=== PATIENT | female | born 1975 | race African-American/Black ===

== ENCOUNTER 2017-04-10 17:18 | Inpatient (IN) ==
[2017-04-10] MEDS ORDERED: METOPROLOL TARTRATE 25 MG TABLET PO STA (19:24)
[2017-04-10] MEDS ORDERED: ASPIRIN 325 MG TABLET PO STA (19:24)
[2017-04-10] MEDS ORDERED: NITROGLYCERIN 2% OINT 1 INCH/GM PACK TOP STA (19:24)
[2017-04-10] MEDS ORDERED: ALUM/MAG/SIMETH/LIDO VISC 1:1 30 ML BOTTLE PO STA (19:24)
[2017-04-10] MEDS ORDERED: MORPHINE 2 MG/1 ML SYRINGE IV STA ×2 (19:24→22:33)
[2017-04-10] MEDS ORDERED: ONDANSETRON 4 MG/2 ML VIAL IV STA (19:24)
[2017-04-10] MEDS ORDERED: METOPROLOL TARTRATE 25 MG TABLET ONE (19:36)
[2017-04-10] MEDS ORDERED: MORPHINE 2 MG/1 ML SYRINGE ONE ×2 (19:36→22:21)
[2017-04-10] MEDS ORDERED: NITROGLYCERIN 2% OINT 1 INCH/GM PACK TOP ONE (19:36)
[2017-04-10] MEDS ORDERED: ALUM/MAG/SIMETH/LIDO VISC 1:1 30 ML BOTTLE PO ONE (19:36)
[2017-04-10] MEDS ORDERED: ONDANSETRON 4 MG/2 ML VIAL ONE (19:36)
[2017-04-10 20:02] LABS: Basophils % 0.5 % (0.0-0.8); Eosinophils # 0.3 10*3/uL (0.0-0.87); Hematocrit 30.8 VOL% (35.7-47.0); Hemoglobin 9.7 GM/DL (12.0-16.0); Immature Granulocytes % 0.3 %; Immature Granulocytes Absolute 0.02 #; Lymphocytes # 2.8 10*3/uL (1.4-4.0); Lymphocytes % 37.6 % (21.3-54.2); Mean Corpuscular HGB Conc 31.5 GM/DL (32-36); Mean Corpuscular Hemoglobin 23 PG (27-34); Mean Corpuscular Volume 74.2 FL (87-102); Mean Platelet Volume 9.7 FL (9.6-12.0); Monocytes # 0.8 10*3/uL (0.11-0.8); Monocytes % 10.2 % (1.7-12.7); Neutrophils # 3.6 10*3/uL (1.4-7.4); Neutrophils % 47.4 % (38.7-73.9); Platelet Count 407 T/CUMM (130-400); Red Blood Count 4.15 MC/CUMM (3.8-5.5); Red Cell Distribution Width 17.6 % (9.3-17.3); White Blood Count 7.6 T/CUMM (4-12)
[2017-04-10 20:10] LABS: Apearance,Urine Slightly Hazy (Clear); Bacteria,Urine Occasional /HPF (Few); Bilirubin,Urine Negative (Negative); Blood, Urine Large mg/dL (Negative); Glucose,Urine (UA) Negative (Negative); Ketones,Urine Negative (Negative); Mucus,Urine Occasional /LPF (Occasional); Nitrite,Urine Negative (Negative); Protein,Urine Negative; RBC,Urine 1 /HPF (0-4); Squamous Epithelial Cell,Urine Occasional /HPF (0-10); Urine Color Yellow (Yellow); Urine Specific Gravity 1.013 (1.001-1.035); Urine Urobilinogen < 2.0 EU/DL (0.2-1.0); WBC,Urine 3 /HPF (0-6)
[2017-04-10 20:44] LABS: Alanine Aminotransferase 29 U/L (13-56); Alkaline Phosphatase 82 U/L (45-117); Aspartate Amino Transferase 31 U/L (0-37); Bilirubin,Total < 0.39 MG/DL (0.2-1.0); Calcium 8.7 MG/DL (8.5-10.1); Total Protein 7.9 G/DL (6.4-8.3)
[2017-04-10 20:45] LABS: Blood Urea Nitrogen 8 MG/DL (7-18); Glucose 74 MG/DL (74-106); Osmolality,Calculated 271.7 MOS/KG (273-304); Potassium 3.5 MMOL/L (3.5-5.1); Sodium 138 MMOL/L (136-145)
[2017-04-10 21:21] LABS: Barbiturates Screen,Urine Negative (Negative); Benzodiazepines Screen,Urine Negative (Negative); Cannabinoid Screen,Urine Negative (Negative); Opiate Screen,Urine Negative (Negative); Phencyclidine Screen,Urine Negative (Negative)
[2017-04-10] MEDS ORDERED: ASPIRIN 325 MG TABLET ONE (22:21)
[2017-04-10] MEDS ORDERED: ENOXAPARIN 100 MG/ML SYRINGE SUBCUT STA (22:24)
[2017-04-10] MEDS ORDERED: ENOXAPARIN 60 MG/0.6 ML SYRINGE ONE (22:35)
[2017-04-11] MEDS ORDERED: ONDANSETRON 4 MG/2 ML VIAL IV PRN (00:26)
[2017-04-11 01:04] LABS: Basophils % 0.6 % (0.0-0.8); Eosinophils # 0.3 10*3/uL (0.0-0.87); Eosinophils % 4.8 % (0.00-10.9); Hemoglobin 9.1 GM/DL (12.0-16.0); Immature Granulocytes % 0.2 %; Immature Granulocytes Absolute 0.01 #; Lymphocytes # 2.9 10*3/uL (1.4-4.0); Lymphocytes % 44.9 % (21.3-54.2); Mean Corpuscular HGB Conc 31.4 GM/DL (32-36); Mean Corpuscular Hemoglobin 23 PG (27-34); Mean Corpuscular Volume 73.6 FL (87-102); Mean Platelet Volume 10.3 FL (9.6-12.0); Monocytes # 0.5 10*3/uL (0.11-0.8); Neutrophils # 2.7 10*3/uL (1.4-7.4); Neutrophils % 41.5 % (38.7-73.9); Platelet Count 357 T/CUMM (130-400); Red Blood Count 3.94 MC/CUMM (3.8-5.5); Red Cell Distribution Width 17.3 % (9.3-17.3); White Blood Count 6.5 T/CUMM (4-12)
[2017-04-11 01:38] LABS: Alanine Aminotransferase 26 U/L (13-56); Alkaline Phosphatase 78 U/L (45-117); Aspartate Amino Transferase 30 U/L (0-37); Bilirubin,Total < 0.39 MG/DL (0.2-1.0); Blood Urea Nitrogen 8 MG/DL (7-18); Calcium 8.5 MG/DL (8.5-10.1); Cholesterol 144 MG/DL (50-200); Glucose 86 MG/DL (74-106); HDL Cholesterol 55 MG/DL (40-60); Magnesium 2.2 MG/DL (1.8-2.4); Osmolality,Calculated 273.5 MOS/KG (273-304); Potassium 3.9 MMOL/L (3.5-5.1); Risk Ratio 2.62; Sodium 139 MMOL/L (136-145); Total Protein 7.7 G/DL (6.4-8.3); Triglycerides 38 MG/DL (2-150); VLDL CHOLESTEROL 7.6 MG/DL
[2017-04-11 08:20] LABS: Apearance,Urine Slightly Hazy (Clear); Bacteria,Urine Occasional /HPF (Few); Bilirubin,Urine Negative (Negative); Blood, Urine Large mg/dL (Negative); Glucose,Urine (UA) Negative (Negative); Ketones,Urine Negative (Negative); Mucus,Urine Occasional /LPF (Occasional); Nitrite,Urine Negative (Negative); Protein,Urine Negative; RBC,Urine 1 /HPF (0-4); Squamous Epithelial Cell,Urine Occasional /HPF (0-10); Urine Color Yellow (Yellow); Urine Urobilinogen < 2.0 EU/DL (0.2-1.0); WBC,Urine 1 /HPF (0-6)
[2017-04-11] MEDS: PANTOPRAZOLE 40 MG TABLET PO SCH (08:28)
[2017-04-11] MEDS: HYDROXYCHLOROQUINE 200 MG TABLET PO SCH (08:28)
[2017-04-11] MEDS: FERROUS SULFATE 325 MG TABLET PO SCH ×2 (08:28→20:36)
[2017-04-11] MEDS: THEOPHYLLINE ER (24 HR) 200 MG CAPSULE PO SCH (08:29)
[2017-04-11] MEDS: ENOXAPARIN 40 MG/0.4 ML SYRINGE SUBCUT SCH (08:31)
[2017-04-11] MEDS: BUDESONIDE/FORMOTEROL 160-4.5 INHALER 6 GM INH SCH ×2 (08:32→20:38)
[2017-04-11] MEDS: ALBUTEROL 2.5 MG/3 ML NEB RESP TX PRN (10:35)
[2017-04-11] MEDS: predniSONE 20 MG TABLET PO SCH (16:52)
[2017-04-12 05:34] LABS: Basophils % 0.2 % (0.0-0.8); Hematocrit 30.9 VOL% (35.7-47.0); Immature Granulocytes % 0.4 %; Immature Granulocytes Absolute 0.02 #; Lymphocytes # 1.1 10*3/uL (1.4-4.0); Lymphocytes % 20.8 % (21.3-54.2); Mean Corpuscular HGB Conc 32.4 GM/DL (32-36); Mean Corpuscular Hemoglobin 24 PG (27-34); Mean Corpuscular Volume 73.4 FL (87-102); Mean Platelet Volume 10.7 FL (9.6-12.0); Monocytes # 0.2 10*3/uL (0.11-0.8); Monocytes % 3.3 % (1.7-12.7); Neutrophils # 3.8 10*3/uL (1.4-7.4); Neutrophils % 75.3 % (38.7-73.9); Platelet Count 389 T/CUMM (130-400); Red Blood Count 4.21 MC/CUMM (3.8-5.5); Red Cell Distribution Width 17.9 % (9.3-17.3); White Blood Count 5.1 T/CUMM (4-12)
[2017-04-12 06:25] LABS: Albumin 2.9 G/DL (3.4-5.0); Bilirubin,Total 0.5 MG/DL (0.2-1.0); Calcium 8.4 MG/DL (8.5-10.1); Potassium 4.3 MMOL/L (3.5-5.1); Total Protein 7.9 G/DL (6.4-8.3)
[2017-04-12] MEDS: THEOPHYLLINE ER (24 HR) 200 MG CAPSULE PO SCH (08:42)
[2017-04-12] MEDS: HYDROXYCHLOROQUINE 200 MG TABLET PO SCH (08:42)
[2017-04-12] MEDS: PANTOPRAZOLE 40 MG TABLET PO SCH (08:42)
[2017-04-12] MEDS: predniSONE 20 MG TABLET PO SCH (08:42)
[2017-04-12] MEDS: FERROUS SULFATE 325 MG TABLET PO SCH ×2 (08:42→21:53)
[2017-04-12] MEDS: BUDESONIDE/FORMOTEROL 160-4.5 INHALER 6 GM INH SCH ×2 (08:43→23:40)
[2017-04-12] MEDS: ENOXAPARIN 40 MG/0.4 ML SYRINGE SUBCUT SCH (08:44)
[2017-04-12] MEDS: ALBUTEROL 2.5 MG/3 ML NEB RESP TX PRN (10:05)
[2017-04-12] MEDS: DICLOFENAC 1.3% PATCH 5/PACK TRANSDERM SCH ×2 (15:07→21:53)
[2017-04-13] MEDS: FERROUS SULFATE 325 MG TABLET PO SCH ×2 (08:37→21:25)
[2017-04-13] MEDS: THEOPHYLLINE ER (24 HR) 200 MG CAPSULE PO SCH (08:37)
[2017-04-13] MEDS: DICLOFENAC 1.3% PATCH 5/PACK TRANSDERM SCH ×2 (08:38→21:26)
[2017-04-13] MEDS: PANTOPRAZOLE 40 MG TABLET PO SCH (08:38)
[2017-04-13] MEDS: predniSONE 20 MG TABLET PO SCH (08:38)
[2017-04-13] MEDS: HYDROXYCHLOROQUINE 200 MG TABLET PO SCH (08:38)
[2017-04-13] MEDS: BUDESONIDE/FORMOTEROL 160-4.5 INHALER 6 GM INH SCH ×2 (08:39→21:25)
[2017-04-13] MEDS: ENOXAPARIN 40 MG/0.4 ML SYRINGE SUBCUT SCH (08:39)
[2017-04-13] MEDS: ALBUTEROL 2.5 MG/3 ML NEB RESP TX PRN (14:30)
[2017-04-13] MEDS: ZALEPLON 5 MG CAPSULE PO PRN (21:25)
[2017-04-14] MEDS ORDERED: LIDOCAINE 2% 5 ML VIAL ONE (09:00)
[2017-04-14] MEDS ORDERED: PROPOFOL 200 MG/20 ML VIAL IV ONE (09:00)
[2017-04-14] MEDS: FERROUS SULFATE 325 MG TABLET PO SCH ×2 (13:58→21:57)
[2017-04-14] MEDS: predniSONE 20 MG TABLET PO SCH (13:58)
[2017-04-14] MEDS: DICLOFENAC 1.3% PATCH 5/PACK TRANSDERM SCH ×2 (13:59→21:53)
[2017-04-14] MEDS: HYDROXYCHLOROQUINE 200 MG TABLET PO SCH (13:59)
[2017-04-14] MEDS: PANTOPRAZOLE 40 MG TABLET PO SCH (13:59)
[2017-04-14] MEDS: THEOPHYLLINE ER (24 HR) 200 MG CAPSULE PO SCH (13:59)
[2017-04-14] MEDS: BUDESONIDE/FORMOTEROL 160-4.5 INHALER 6 GM INH SCH ×2 (14:02→21:57)
[2017-04-14] MEDS: ZALEPLON 5 MG CAPSULE PO PRN (21:57)
[2017-04-15] MEDS: DICLOFENAC 1.3% PATCH 5/PACK TRANSDERM SCH (09:27)
[2017-04-15] MEDS: PANTOPRAZOLE 40 MG TABLET PO SCH (09:27)
[2017-04-15] MEDS: FERROUS SULFATE 325 MG TABLET PO SCH (09:27)
[2017-04-15] MEDS: HYDROXYCHLOROQUINE 200 MG TABLET PO SCH (09:27)
[2017-04-15] MEDS: predniSONE 20 MG TABLET PO SCH (09:27)
[2017-04-15] MEDS: BUDESONIDE/FORMOTEROL 160-4.5 INHALER 6 GM INH SCH (09:28)
[2017-04-15] MEDS: THEOPHYLLINE ER (24 HR) 200 MG CAPSULE PO SCH (09:28)
[2017-04-15 12:39] VITALS: BP 102/58
== END 2017-04-15 16:29 | disposition home health service (06) | DRG 243 ==
LOC: N.ED 17:18 → N.EDINP 23:38 → SUATTDRO 23:38 → N.TELES 04-11 00:10
PROVIDERS: ADMIT Internal Medicine; ATTEND Hospitalist

== ENCOUNTER 2017-04-20 10:58 | Inpatient (IN) ==
[2017-04-20 12:21] LABS: CKMB % 3.1 %; Troponin I Only 0.02 NG/ML (0.00-0.045)
[2017-04-20] MEDS ORDERED: ENOXAPARIN 100 MG/ML SYRINGE SUBCUT STA (12:54)
[2017-04-20] MEDS ORDERED: ASPIRIN 325 MG TABLET PO STA (12:54)
[2017-04-20] MEDS ORDERED: NITROGLYCERIN SL 0.4 MG TABLET SL PRN (12:54)
[2017-04-20] MEDS ORDERED: methylPREDNISolone SOD SUC 125 MG/2 ML VIAL IV STA (12:54)
[2017-04-20 13:03] LABS: Basophils # 0.1 10*3/uL (0.0-0.2); Basophils % 0.6 % (0.0-0.8); Eosinophils # 0.1 10*3/uL (0.0-0.87); Eosinophils % 0.9 % (0.00-10.9); Hematocrit 33.7 VOL% (35.7-47.0); Hemoglobin 10.8 GM/DL (12.0-16.0); Immature Granulocytes % 0.6 %; Immature Granulocytes Absolute 0.07 #; Lymphocytes # 1.9 10*3/uL (1.4-4.0); Lymphocytes % 17.3 % (21.3-54.2); Mean Corpuscular Hemoglobin 24 PG (27-34); Mean Corpuscular Volume 76.2 FL (87-102); Mean Platelet Volume 10.6 FL (9.6-12.0); Monocytes # 0.5 10*3/uL (0.11-0.8); Monocytes % 4.1 % (1.7-12.7); Neutrophils # 8.5 10*3/uL (1.4-7.4); Neutrophils % 76.5 % (38.7-73.9); Platelet Count 422 T/CUMM (130-400); Red Blood Count 4.42 MC/CUMM (3.8-5.5); Red Cell Distribution Width 21.2 % (9.3-17.3); White Blood Count 11.1 T/CUMM (4-12)
[2017-04-20 13:16] LABS: Albumin 3.2 G/DL (3.4-5.0); Bilirubin,Total 0.4 MG/DL (0.2-1.0); Calcium 9.1 MG/DL (8.5-10.1); Osmolality,Calculated 270.8 MOS/KG (273-304); Potassium 3.4 MMOL/L (3.5-5.1); Total Protein 7.7 G/DL (6.4-8.3)
[2017-04-20] MEDS ORDERED: methylPREDNISolone SOD SUC 125 MG/2 ML VIAL ONE ×2 (13:35→13:50)
[2017-04-20] MEDS ORDERED: NITROGLYCERIN SL 0.4 MG TABLET SL ONE (13:35)
[2017-04-20] MEDS ORDERED: ASPIRIN 325 MG TABLET ONE (13:35)
[2017-04-20] MEDS ORDERED: ENOXAPARIN 60 MG/0.6 ML SYRINGE ONE (13:35)
[2017-04-20] MEDS ORDERED: ALBUTEROL 2.5 MG/3 ML NEB RESP TX PRN (14:43)
[2017-04-20] MEDS ORDERED: ACETAMINOPHEN 325 MG TABLET PO PRN (14:43)
[2017-04-20] MEDS ORDERED: ZALEPLON 5 MG CAPSULE PO PRN (14:43)
[2017-04-20] MEDS ORDERED: ONDANSETRON 8 MG PO PRN (14:43)
[2017-04-20] MEDS ORDERED: ONDANSETRON 4 MG/2 ML VIAL IV PRN (14:43)
[2017-04-20] MEDS: SODIUM CHLORIDE 0.9% 1,000 ML IV SCH (15:18)
[2017-04-20] MEDS: IBUPROFEN 200 MG TABLET PO SCH ×3 (16:11→23:51)
[2017-04-20] MEDS ORDERED: KETOROLAC 30 MG/1 ML VIAL IV ONE (16:20)
[2017-04-20] MEDS ORDERED: POTASSIUM CHLORIDE 20 MEQ TABLET PO ONE (16:39)
[2017-04-20] MEDS: traMADol 50 MG TABLET PO SCH ×2 (16:48→22:01)
[2017-04-20] MEDS: ACETAMINOPHEN 325 MG TABLET PO SCH ×2 (16:49→22:01)
[2017-04-20] MEDS: GABAPENTIN 100 MG CAPSULE PO SCH ×2 (16:50→20:30)
[2017-04-20] MEDS: FERROUS SULFATE 325 MG TABLET PO SCH (20:30)
[2017-04-20] MEDS: BUDESONIDE/FORMOTEROL 160-4.5 INHALER 6 GM INH SCH (23:21)
[2017-04-21 04:35] LABS: Basophils % 0.1 % (0.0-0.8); Hematocrit 33.2 VOL% (35.7-47.0); Hemoglobin 10.6 GM/DL (12.0-16.0); Immature Granulocytes % 0.4 %; Immature Granulocytes Absolute 0.05 #; Lymphocytes # 1.5 10*3/uL (1.4-4.0); Lymphocytes % 11.9 % (21.3-54.2); Mean Corpuscular HGB Conc 31.9 GM/DL (32-36); Mean Corpuscular Hemoglobin 24 PG (27-34); Mean Corpuscular Volume 74.9 FL (87-102); Mean Platelet Volume 10.4 FL (9.6-12.0); Monocytes # 0.6 10*3/uL (0.11-0.8); Monocytes % 4.9 % (1.7-12.7); Neutrophils # 10.4 10*3/uL (1.4-7.4); Neutrophils % 82.7 % (38.7-73.9); Platelet Count 460 T/CUMM (130-400); Red Blood Count 4.43 MC/CUMM (3.8-5.5); Red Cell Distribution Width 20.8 % (9.3-17.3); White Blood Count 12.6 T/CUMM (4-12)
[2017-04-21 05:41] LABS: Calcium 8.6 MG/DL (8.5-10.1); Magnesium 2.2 MG/DL (1.8-2.4); Osmolality,Calculated 271.8 MOS/KG (273-304); Potassium 4.3 MMOL/L (3.5-5.1)
[2017-04-21] MEDS: IBUPROFEN 200 MG TABLET PO SCH ×3 (06:23→22:49)
[2017-04-21] MEDS: THEOPHYLLINE ER (24 HR) 200 MG CAPSULE PO SCH (08:51)
[2017-04-21] MEDS: HYDROXYCHLOROQUINE 200 MG TABLET PO SCH (08:51)
[2017-04-21] MEDS: FERROUS SULFATE 325 MG TABLET PO SCH ×2 (08:51→21:19)
[2017-04-21] MEDS: PANTOPRAZOLE 40 MG TABLET PO SCH (08:52)
[2017-04-21] MEDS: predniSONE 20 MG TABLET PO SCH (08:52)
[2017-04-21] MEDS: traMADol 50 MG TABLET PO SCH ×2 (08:52→21:20)
[2017-04-21] MEDS: ACETAMINOPHEN 325 MG TABLET PO SCH ×2 (08:53→21:20)
[2017-04-21] MEDS: GABAPENTIN 100 MG CAPSULE PO SCH ×3 (08:53→21:20)
[2017-04-21] MEDS: BUDESONIDE/FORMOTEROL 160-4.5 INHALER 6 GM INH SCH ×2 (08:55→21:21)
[2017-04-21] MEDS: SODIUM CHLORIDE 0.9% 1,000 ML IV SCH ×2 (08:56→11:31)
[2017-04-21] MEDS: ENOXAPARIN 40 MG/0.4 ML SYRINGE SUBCUT SCH (14:39)
[2017-04-22] MEDS: SODIUM CHLORIDE 0.9% 1,000 ML IV SCH ×2 (01:21→17:37)
[2017-04-22] MEDS: IBUPROFEN 200 MG TABLET PO SCH ×3 (06:15→22:53)
[2017-04-22] MEDS: FERROUS SULFATE 325 MG TABLET PO SCH ×2 (08:40→20:45)
[2017-04-22] MEDS: ACETAMINOPHEN 325 MG TABLET PO SCH ×2 (08:41→20:46)
[2017-04-22] MEDS: GABAPENTIN 100 MG CAPSULE PO SCH ×3 (08:41→20:45)
[2017-04-22] MEDS: predniSONE 20 MG TABLET PO SCH (08:41)
[2017-04-22] MEDS: HYDROXYCHLOROQUINE 200 MG TABLET PO SCH (08:41)
[2017-04-22] MEDS: THEOPHYLLINE ER (24 HR) 200 MG CAPSULE PO SCH (08:41)
[2017-04-22] MEDS: traMADol 50 MG TABLET PO SCH ×2 (08:42→20:47)
[2017-04-22] MEDS: PANTOPRAZOLE 40 MG TABLET PO SCH (08:42)
[2017-04-22] MEDS: BUDESONIDE/FORMOTEROL 160-4.5 INHALER 6 GM INH SCH ×2 (08:42→20:47)
[2017-04-22] MEDS: ENOXAPARIN 40 MG/0.4 ML SYRINGE SUBCUT SCH (13:48)
[2017-04-23] MEDS: IBUPROFEN 200 MG TABLET PO SCH (05:58)
[2017-04-23] MEDS: SODIUM CHLORIDE 0.9% 1,000 ML IV SCH ×2 (06:05→10:49)
[2017-04-23 07:50] VITALS: BP 121/65
[2017-04-23] MEDS: THEOPHYLLINE ER (24 HR) 200 MG CAPSULE PO SCH (08:39)
[2017-04-23] MEDS: ACETAMINOPHEN 325 MG TABLET PO SCH (08:40)
[2017-04-23] MEDS: FERROUS SULFATE 325 MG TABLET PO SCH (08:40)
[2017-04-23] MEDS: predniSONE 20 MG TABLET PO SCH (08:40)
[2017-04-23] MEDS: HYDROXYCHLOROQUINE 200 MG TABLET PO SCH (08:40)
[2017-04-23] MEDS: PANTOPRAZOLE 40 MG TABLET PO SCH (08:40)
[2017-04-23] MEDS: traMADol 50 MG TABLET PO SCH (08:40)
[2017-04-23] MEDS: BUDESONIDE/FORMOTEROL 160-4.5 INHALER 6 GM INH SCH (08:40)
[2017-04-23] MEDS: GABAPENTIN 100 MG CAPSULE PO SCH (08:40)
== END 2017-04-23 10:40 | disposition home or self-care (01) | DRG 203 ==
LOC: N.ED 10:58 → N.EDINP 13:11 → SUATTDRO 13:11 → N.TELEN 13:55
PROVIDERS: ADMIT Internal Medicine

== ENCOUNTER 2018-10-02 18:37 | Inpatient (IN) ==
[2018-10-02] MEDS ORDERED: MORPHINE 4 MG/1 ML VIAL IV STA (19:54)
[2018-10-02] MEDS ORDERED: ONDANSETRON 4 MG/2 ML VIAL IV STA (19:54)
[2018-10-02] MEDS ORDERED: methylPREDNISolone SOD SUC 125 MG/2 ML VIAL IV STA (19:54)
[2018-10-02] MEDS ORDERED: ALBUTEROL/IPRATROPIUM 3 ML NEB RESP TX STA (19:54)
[2018-10-02 20:53] LABS: Basophils # 0.1 10*3/uL (0.0-0.2); Basophils % 0.7 % (0.0-0.8); Eosinophils # 0.4 10*3/uL (0.0-0.87); Eosinophils % 4.6 % (0.00-10.9); Hematocrit 31.5 VOL% (35.7-47.0); Hemoglobin 9.3 GM/DL (12.0-16.0); Immature Granulocytes % 0.3 %; Immature Granulocytes Absolute 0.02 #; Lymphocytes # 2.5 10*3/uL (1.4-4.0); Lymphocytes % 32.4 % (21.3-54.2); Mean Corpuscular HGB Conc 29.5 GM/DL (32-36); Mean Corpuscular Volume 75.5 FL (87-102); Mean Platelet Volume 9.5 FL (9.6-12.0); Monocytes % 8.9 % (1.7-12.7); Neutrophils % 53.1 % (38.7-73.9); Platelet Count 464 T/CUMM (130-400); Red Blood Count 4.17 MC/CUMM (3.8-5.5); White Blood Count 7.6 T/CUMM (4-12)
[2018-10-02 21:00] LABS: PT Patient Result 10.7 SECS
[2018-10-02 21:11] LABS: Barbiturates Screen,Urine Negative (Negative); Benzodiazepines Screen,Urine Negative (Negative); Cannabinoid Screen,Urine Negative (Negative); Opiate Screen,Urine Positive (Negative); Phencyclidine Screen,Urine Negative (Negative)
[2018-10-02 21:15] LABS: Apearance,Urine CLEAR (Clear); Bacteria,Urine Occasional /HPF (Few); Bilirubin,Urine Negative (Negative); Blood, Urine Negative (Negative); Glucose,Urine (UA) Negative (Negative); Ketones,Urine 5 mg/dL (Negative); Mucus,Urine Many /LPF (Occasional); Nitrite,Urine Negative (Negative); Protein,Urine Negative; Squamous Epithelial Cell,Urine Occasional /HPF (0-10); Urine Color Yellow (Yellow); Urine Specific Gravity 1.031 (1.001-1.035); WBC,Urine 1 /HPF (0-6)
[2018-10-02 21:26] LABS: Albumin 3.3 G/DL (3.4-5.0); Bilirubin,Total 0.6 MG/DL (0.2-1.0); CKMB % 1.6 %; Calcium 8.6 MG/DL (8.5-10.1); Osmolality,Calculated 274.5 MOS/KG (273-304); Total Protein 8.4 G/DL (6.4-8.3); Troponin I 0.03 NG/ML (0.00-0.045)
[2018-10-03] MEDS ORDERED: DOCUSATE SODIUM 100 MG CAPSULE PO PRN (00:20)
[2018-10-03] MEDS ORDERED: ACETAMINOPHEN 325 MG TABLET PO PRN (00:20)
[2018-10-03] MEDS ORDERED: ONDANSETRON 4 MG/2 ML VIAL IV PRN (00:20)
[2018-10-03] MEDS ORDERED: ALBUTEROL 1.25 MG/3 ML NEB RESP TX PRN (00:24)
[2018-10-03] MEDS: ALBUTEROL/IPRATROPIUM 3 ML NEB RESP TX SCH ×4 (01:00→18:40)
[2018-10-03 05:39] LABS: Basophils % 0.2 % (0.0-0.8); Hematocrit 31.3 VOL% (35.7-47.0); Hemoglobin 9.5 GM/DL (12.0-16.0); Immature Granulocytes % 0.3 %; Immature Granulocytes Absolute 0.02 #; Lymphocytes # 0.8 10*3/uL (1.4-4.0); Lymphocytes % 13.6 % (21.3-54.2); Mean Corpuscular HGB Conc 30.4 GM/DL (32-36); Mean Corpuscular Volume 74.5 FL (87-102); Mean Platelet Volume 10.9 FL (9.6-12.0); Neutrophils % 84.9 % (38.7-73.9); Platelet Count 388 T/CUMM (130-400); Red Cell Distribution Width 18.2 % (9.3-17.3); White Blood Count 5.8 T/CUMM (4-12)
[2018-10-03 06:12] LABS: Calcium 9.1 MG/DL (8.5-10.1); Osmolality,Calculated 273.8 MOS/KG (273-304)
[2018-10-03] MEDS: PANTOPRAZOLE 40 MG TABLET PO SCH (09:37)
[2018-10-03] MEDS: ENOXAPARIN 40 MG/0.4 ML SYRINGE SUBCUT SCH (09:37)
[2018-10-03] MEDS: HYDROXYCHLOROQUINE 200 MG TABLET PO SCH (09:37)
[2018-10-03] MEDS: FERROUS SULFATE 325 MG TABLET PO SCH ×2 (09:37→21:16)
[2018-10-03] MEDS: methylPREDNISolone SOD SUC 40 MG/1 ML VIAL IV SCH ×2 (09:37→21:16)
[2018-10-03] MEDS: BUDESONIDE/FORMOTEROL 160-4.5 INHALER 6 GM INH SCH ×2 (09:37→21:19)
[2018-10-03] MEDS: GABAPENTIN 100 MG CAPSULE PO SCH (18:20)
[2018-10-03] MEDS: ZALEPLON 5 MG CAPSULE PO PRN (21:16)
[2018-10-04] MEDS: ALBUTEROL/IPRATROPIUM 3 ML NEB RESP TX SCH ×4 (00:30→19:04)
[2018-10-04 09:12] LABS: Basophils % 0.2 % (0.0-0.8); Eosinophils % 0.1 % (0.00-10.9); Hemoglobin 9.6 GM/DL (12.0-16.0); Immature Granulocytes % 0.5 %; Immature Granulocytes Absolute 0.05 #; Lymphocytes # 2.4 10*3/uL (1.4-4.0); Lymphocytes % 22.3 % (21.3-54.2); Mean Corpuscular Volume 75.1 FL (87-102); Mean Platelet Volume 10.2 FL (9.6-12.0); Monocytes % 7.5 % (1.7-12.7); Neutrophils % 69.4 % (38.7-73.9); Platelet Count 444 T/CUMM (130-400); Red Blood Count 4.26 MC/CUMM (3.8-5.5); Red Cell Distribution Width 18.8 % (9.3-17.3); White Blood Count 10.6 T/CUMM (4-12)
[2018-10-04] MEDS: methylPREDNISolone SOD SUC 40 MG/1 ML VIAL IV SCH ×2 (09:21→20:28)
[2018-10-04] MEDS: FERROUS SULFATE 325 MG TABLET PO SCH ×2 (09:21→20:28)
[2018-10-04] MEDS: HYDROXYCHLOROQUINE 200 MG TABLET PO SCH (09:21)
[2018-10-04] MEDS: PANTOPRAZOLE 40 MG TABLET PO SCH (09:21)
[2018-10-04] MEDS: ENOXAPARIN 40 MG/0.4 ML SYRINGE SUBCUT SCH (09:21)
[2018-10-04] MEDS: BUDESONIDE/FORMOTEROL 160-4.5 INHALER 6 GM INH SCH ×2 (09:23→20:27)
[2018-10-04 09:39] LABS: Calcium 9.1 MG/DL (8.5-10.1); Osmolality,Calculated 274.5 MOS/KG (273-304)
[2018-10-04] MEDS: DICLOFENAC 1.3% PATCH 5/PACK TRANSDERM SCH ×2 (12:04→20:31)
[2018-10-04] MEDS: GABAPENTIN 100 MG CAPSULE PO SCH (18:07)
[2018-10-04] MEDS: ZALEPLON 5 MG CAPSULE PO PRN (20:28)
[2018-10-05] MEDS: ALBUTEROL/IPRATROPIUM 3 ML NEB RESP TX SCH ×4 (01:20→19:14)
[2018-10-05 05:24] LABS: Basophils % 0.2 % (0.0-0.8); Hemoglobin 9.3 GM/DL (12.0-16.0); Immature Granulocytes % 0.7 %; Immature Granulocytes Absolute 0.06 #; Lymphocytes % 21.4 % (21.3-54.2); Mean Corpuscular Volume 75.8 FL (87-102); Mean Platelet Volume 10.3 FL (9.6-12.0); Monocytes % 7.9 % (1.7-12.7); Neutrophils % 69.8 % (38.7-73.9); Platelet Count 467 T/CUMM (130-400); Red Blood Count 4.09 MC/CUMM (3.8-5.5); Red Cell Distribution Width 18.9 % (9.3-17.3); White Blood Count 9.2 T/CUMM (4-12)
[2018-10-05 05:39] LABS: Alanine Aminotransferase 34 U/L (13-56); Albumin 3.1 G/DL (3.4-5.0); Alkaline Phosphatase 85 U/L (45-117); Aspartate Amino Transferase 21 U/L (0-37); Bilirubin,Total < 0.39 MG/DL (0.2-1.0); Blood Urea Nitrogen 10 MG/DL (7-18); Calcium 9.3 MG/DL (8.5-10.1); Glucose 98 MG/DL (74-106); Osmolality,Calculated 271.8 MOS/KG (273-304); Total Protein 8.1 G/DL (6.4-8.3)
[2018-10-05] MEDS ORDERED: LACTATED RINGERS 500 ML IV SCH (08:00)
[2018-10-05] MEDS ORDERED: PROPOFOL 200 MG/20 ML VIAL IV ONE (09:00)
[2018-10-05] MEDS ORDERED: LIDOCAINE 100 MG/5 ML SYRINGE ONE (09:00)
[2018-10-05] MEDS: FERROUS SULFATE 325 MG TABLET PO SCH ×2 (11:01→20:41)
[2018-10-05] MEDS: PANTOPRAZOLE 40 MG TABLET PO SCH (11:48)
[2018-10-05] MEDS: methylPREDNISolone SOD SUC 40 MG/1 ML VIAL IV SCH ×2 (11:49→20:41)
[2018-10-05] MEDS: BUDESONIDE/FORMOTEROL 160-4.5 INHALER 6 GM INH SCH ×2 (11:49→20:45)
[2018-10-05] MEDS: ENOXAPARIN 40 MG/0.4 ML SYRINGE SUBCUT SCH (11:49)
[2018-10-05] MEDS: HYDROXYCHLOROQUINE 200 MG TABLET PO SCH (14:32)
[2018-10-05] MEDS: DICLOFENAC 1.3% PATCH 5/PACK TRANSDERM SCH (15:29)
[2018-10-05] MEDS: GABAPENTIN 100 MG CAPSULE PO SCH (18:19)
[2018-10-05] MEDS: ZALEPLON 5 MG CAPSULE PO PRN (20:41)
[2018-10-06] MEDS: ALBUTEROL/IPRATROPIUM 3 ML NEB RESP TX SCH ×4 (01:19→19:20)
[2018-10-06 05:56] LABS: Basophils % 0.2 % (0.0-0.8); Hematocrit 33.1 VOL% (35.7-47.0); Immature Granulocytes % 0.7 %; Immature Granulocytes Absolute 0.08 #; Lymphocytes # 2.3 10*3/uL (1.4-4.0); Lymphocytes % 19.2 % (21.3-54.2); Mean Corpuscular HGB Conc 30.2 GM/DL (32-36); Mean Corpuscular Volume 75.6 FL (87-102); Mean Platelet Volume 10.7 FL (9.6-12.0); Monocytes % 6.2 % (1.7-12.7); Neutrophils % 73.7 % (38.7-73.9); Platelet Count 419 T/CUMM (130-400); Red Blood Count 4.38 MC/CUMM (3.8-5.5); Red Cell Distribution Width 19.1 % (9.3-17.3)
[2018-10-06 06:13] LABS: % Iron Saturation 20.2 % (18-50); Alanine Aminotransferase 35 U/L (13-56); Albumin 3.2 G/DL (3.4-5.0); Alkaline Phosphatase 80 U/L (45-117); Aspartate Amino Transferase 20 U/L (0-37); Bilirubin,Total < 0.39 MG/DL (0.2-1.0); Blood Urea Nitrogen 9 MG/DL (7-18); Glucose 103 MG/DL (74-106); Iron 78 UG/DL (50-170); Iron Binding Capacity 387 UG/DL (250-450); Total Protein 7.9 G/DL (6.4-8.3)
[2018-10-06 07:37] LABS: Folate 10.3 NG/ML (5.4-24.0)
[2018-10-06] MEDS: PANTOPRAZOLE 40 MG TABLET PO SCH (08:15)
[2018-10-06] MEDS: ENOXAPARIN 40 MG/0.4 ML SYRINGE SUBCUT SCH (08:15)
[2018-10-06] MEDS: HYDROXYCHLOROQUINE 200 MG TABLET PO SCH (08:16)
[2018-10-06] MEDS: FERROUS SULFATE 325 MG TABLET PO SCH ×2 (08:16→22:13)
[2018-10-06] MEDS: BUDESONIDE/FORMOTEROL 160-4.5 INHALER 6 GM INH SCH ×2 (08:17→22:15)
[2018-10-06] MEDS: methylPREDNISolone SOD SUC 40 MG/1 ML VIAL IV SCH ×2 (12:23→22:14)
[2018-10-06] MEDS ORDERED: SODIUM CHLORIDE 0.9% 500 ML IV ONE (16:56)
[2018-10-06] MEDS ORDERED: GABAPENTIN 100 MG CAPSULE PO SCH (21:00)
[2018-10-07] MEDS: ALBUTEROL/IPRATROPIUM 3 ML NEB RESP TX SCH ×3 (01:20→12:14)
[2018-10-07 05:15] LABS: Basophils % 0.3 % (0.0-0.8); Hematocrit 33.5 VOL% (35.7-47.0); Hemoglobin 10.1 GM/DL (12.0-16.0); Immature Granulocytes % 0.8 %; Immature Granulocytes Absolute 0.08 #; Lymphocytes # 1.6 10*3/uL (1.4-4.0); Lymphocytes % 15.5 % (21.3-54.2); Mean Corpuscular HGB Conc 30.1 GM/DL (32-36); Mean Corpuscular Volume 76.1 FL (87-102); Monocytes % 2.4 % (1.7-12.7); Platelet Count 421 T/CUMM (130-400); Red Cell Distribution Width 19.8 % (9.3-17.3)
[2018-10-07 05:45] LABS: Albumin 2.9 G/DL (3.4-5.0); Bilirubin,Total 0.7 MG/DL (0.2-1.0); Calcium 8.4 MG/DL (8.5-10.1); Total Protein 7.7 G/DL (6.4-8.3)
[2018-10-07] MEDS: FERROUS SULFATE 325 MG TABLET PO SCH (08:22)
[2018-10-07] MEDS: methylPREDNISolone SOD SUC 40 MG/1 ML VIAL IV SCH ×2 (08:22→09:46)
[2018-10-07] MEDS: PANTOPRAZOLE 40 MG TABLET PO SCH (08:22)
[2018-10-07] MEDS: HYDROXYCHLOROQUINE 200 MG TABLET PO SCH (08:22)
[2018-10-07] MEDS: ENOXAPARIN 40 MG/0.4 ML SYRINGE SUBCUT SCH (08:22)
[2018-10-07] MEDS: BUDESONIDE/FORMOTEROL 160-4.5 INHALER 6 GM INH SCH (08:26)
[2018-10-07 11:49] VITALS: BP 112/64
[2018-10-07] MEDS ORDERED: MIDODRINE 5 MG TABLET PO SCH (15:00)
== END 2018-10-07 15:00 | disposition home or self-care (01) | DRG 206 ==
LOC: N.EDINP 18:37 → N.ED 18:37 → N.5E 10-03 00:15 → SUATTDRO 10-03 13:04
PROVIDERS: ADMIT Hospitalist; ATTEND Internal Medicine